=== PATIENT | female | born 2000 | race Caucasian/White ===

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

== ENCOUNTER 2022-03-13 19:23 | Emergency (ER) | payer OTHER, SELFPAY ==
[2022-03-13] VITALS (8 sets, daily range): BP systolic 117–124; BP diastolic 63–91; PULSE 72–115; RESP 10–20; TEMP 36.9–37.1; O2SAT 97–100; BMI 23.0
--- NOTE | 2022-03-13 19:16 | ECG_ITS ---
APPROVED REPORT Exam: Resting ECG HR:113 bpm ECG Measurements Heart Rate 113 AXES IN 131 P 51 QRSd 94 QRS 77 QT 312 T 17 QTc 379 Conclusion SINUS TACHYCARDIA ABNORMAL RHYTHM ECG UNCONFIRMED REPORT Electronically signed by : David Higgins MD 03/14/2022 08:08:58
--- NOTE | 2022-03-13 19:28 | XR_ITS ---
PROCEDURE INFORMATION: Exam: XR Chest Exam date and time: 03/13/2022 7:54 PM Age: 21 years old Clinical indication: Sternal or substernal pain; Additional info: Chest pain TECHNIQUE: Imaging protocol: XR of the chest. Views: 2 views. COMPARISON: CR XR CHEST PORTABLE 09/02/2020 10:31 AM FINDINGS: Lungs: Unremarkable. No consolidation. Pleural spaces: Unremarkable. No pleural effusion. No pneumothorax. Heart/Mediastinum: Unremarkable. No cardiomegaly. Bones/joints: Unremarkable. IMPRESSION: No acute findings.
[2022-03-13 19:37] LABS: Basophils # 0.2 K/mm3 (0-0.2); Basophils % 2.5 % (0.1-2.0); Eosinophils # 0.1 K/mm3 (0.0-0.4); Eosinophils % 0.7 % (0.1-12.0); Hematocrit 46.1 % (37.0-47.0); Hemoglobin 15.5 g/dL (12.2-16.2); Lymphocytes # 1.7 K/mm3 (0.7-4.5); Lymphocytes % 22.8 % (10-50); Mean Corpuscular HGB Conc 33.6 g/dL (31.8-35.4); Mean Corpuscular Hemoglobin 29.4 pg (27.0-31.2); Mean Corpuscular Volume 87.7 fl (81-99); Mean Platelet Volume 8.9 fl (7.4-10.4); Monocytes # 0.5 K/mm3 (0.1-1.0); Monocytes % 6.1 % (1.7-9.3); Platelet Count 269 K/mm3 (142-424); Red Blood Count 5.25 M/mm3 (4.20-5.40); Red Cell Distribution Width 12.9 % (11.5-17.5); White Blood Count 7.3 K/mm3 (4.5-13.0)
[2022-03-13 19:44] LABS: Alanine Aminotransferase 18 U/L (12-78); Albumin Level 4.6 g/dl (3.5-5.0); Alkaline Phosphatase 89 U/L (38-126); Anion Gap 10.6 mEq/L (5-15); Aspartate Amino Transferase 22 U/L (14-36); Bilirubin,Direct 0.2 mg/dl (0.0-0.4); Bilirubin,Indirect 0.2 mg/dL (0.0-0.9); Bilirubin,Total 0.4 mg/dl (0.2-1.3); Bilirubin,Unconjugated 0.2 mg/dL (0.0-1.1); Blood Urea Nitrogen 13 mg/dl (7-17); Calcium 9.3 mg/dl (8.4-10.2); Carbon Dioxide 28 mmol/L (22.0-30.0); Chloride 105 mmol/L (98-107); Creatinine Clearance Estimated 140 mL/min (50-200); Estimated Glomerular Filt Rate 129 ml/min (>60); GFR (African American) 156 ML/MIN (>60); Glucose 73 mg/dl (74-100); Potassium 3.6 mmoL/L (3.5-5.1); Sodium 140 mmol/L (136-145); Total Protein,Serum 7.8 g/dl (6.3-8.2)
--- NOTE | 2022-03-13 19:48 | [facility].EDCP ---
ED Disposition Condition on Discharge: Good - Critical Care Critical Care Time: No <Magdi Nguyen - Last Filed: 03/13/22 19:48> <Faizan Cordova - Last Filed: 03/13/22 22:14> Clinical Impression: Pleurisy, Nonspecific chest pain Disposition: Home, Self-Care Instructions: DI for Atypical Chest Pain Additional Instructions: use meds and recheck if needed Prescriptions: predniSONE [Prednisone 20mg Tab] 20 mg PO BID #10 tab Transmission Status: Pending to [facility] Referrals: Negar Guy APRN [Primary Care Provider] - Attestation: On 03/13/22, the high probability of a clinically significant, sudden or life threatening deterioration of the following system(s) required my full and direct attention, intervention and personal management. The time I documented below is in addition to time spent performing reported procedures but includes the following listed in this critical care notation. Medical Decision Making - Medical Records Medical records reviewed: Yes: I reviewed the patient's medical records. - Tristan Inquiry Pt receiving controlled substance: No - Lab Data Result diagrams: 03/13/22 19:27 - ECG Data Tracing #1 I reviewed this ECG and interpreted as documented below: ECG initial impression date: 03/13/22 ECG initial impression time: 19:16 ECG normal with no acute: arrhythmias, ischemia, conduction abnormalities, chamber hypertrophy Normal Sinus Rhythm: Yes Arrhythmias present: sinus tach - Reevaluation(s) Time: 19:50 - CLEVE Score for Non-Stemi Age of Patient: <30 years old Heart Rate: 110-149 bpm Systolic Blood Pressure: 120-139 mmhg Serum Creatinine: <0.40 mg/dl CHF Killip Class: I-No CHF Other Risk Factors: None Non-Stemi Risk Score: 59 Risk Stratification: 1-108 = Low Risk <Magdi Nguyen - Last Filed: 03/13/22 19:48> - Lab Data Lab results reviewed: Yes: I reviewed the patient's lab results. Result diagrams: 03/13/22 19:27 03/13/22 19:27 - Radiology Data #1 Image(s): Chest Image Reviewed: Yes I have reviewed radiologist's interpretation Preliminary Findings: Normal/NAD <Faizan Cordova - Last Filed: 03/13/22 22:14> Vital Signs: 03/13/22 19:24 03/13/22 19:26 03/13/22 19:45 Temperature 98.7 F Temperature Source Oral Pulse Rate 109 H 105 H Pulse Rate [Right] 115 H Respiratory Rate 19 10 L 16 Blood Pressure 122/91 H 119/71 Blood Pressure [Right Arm] 122/87 Blood Pressure Mean [Right Arm] 98 Blood Pressure Source [Right Arm] Automatic Cuff 02 Sat by Pulse Oximetry 100 98 99 Oxygen Delivery Method Room Air Room Air Room Air 03/13/22 20:30 03/13/22 21:00 03/13/22 21:30 Temperature Temperature Source Pulse Rate 88 80 72 Pulse Rate [Right] Respiratory Rate 20 19 16 Blood Pressure 122/71 122/63 117/73 Blood Pressure [Right Arm] Blood Pressure Mean [Right Arm] Blood Pressure Source [Right Arm] 02 Sat by Pulse Oximetry 97 98 99 Oxygen Delivery Method Room Air 03/13/22 21:57 Temperature 98.4 F Temperature Source Oral Pulse Rate 77 Pulse Rate [Right] Respiratory Rate 16 Blood Pressure 124/83 Blood Pressure [Right Arm] Blood Pressure Mean [Right Arm] Blood Pressure Source [Right Arm] 02 Sat by Pulse Oximetry Oxygen Delivery Method Room Air - Lab Data Lab Results 03/13/22 19:27: WBC 7.3, RBC 5.25, Hgb 15.5, Hct 46.1, MCV 87.7, MCH 29.4, MCHC 33.6, RDW 12.9, Plt Count 269, MPV 8.9, Neut % (Auto) 68.0, Lymph % (Auto) 22.8, Foster % (Auto) 6.1, Eos % (Auto) 0.7, Baso % (Auto) 2.5 H, Neut # (Auto) 5.0, Lymph # (Auto) 1.7, Foster # (Auto) 0.5, Eos # (Auto) 0.1, Baso # (Auto) 0.2 03/13/22 19:27: Sodium 140, Potassium 3.6, Chloride 105, Carbon Dioxide 28, Anion Gap 10.6, BUN 13, Creatinine 0.60, Estimated Creat Clear 140, Estimated GFR 129, Est GFR ( Amer) 156, Glucose 73 L, Calcium 9.3, Total Bilirubin 0.4, Direct Bilirubin 0.2, Conjugated Bilirubin 0.0, Indirect Bilirubin 0.2,
[2022-03-13 19:50] LABS: C-Reactive Protein 32.9 mg/L (0-4)
[2022-03-13 19:52] LABS: HCG Qualitative, Serum Negative (Negative); Magnesium 2.1 mg/dl (1.6-2.3)
[2022-03-13 20:04] LABS: Procalcitonin 0.044 ng/mL (0.0-2.0); Troponin I < 0.01 ng/ml (0.00-0.034)
[2022-03-13 20:05] LABS: Erythrocyte Sedimentation Rate 16 mm/hr (0-20)
== END 2022-03-13 22:22 | disposition home or self-care (01) ==
PROVIDERS: Emergency Provider Emergency Medicine; PCP Nurse Practitioner Family
DX: R09.1 Pleurisy (principal); R07.89 Other chest pain
CPT/HCPCS: 71046; 80048; 80076; 83735; 84145; 84484; 84703; 85025; 85651; 86140; 93005; 96360; 96365; 96375

== ENCOUNTER 2023-11-25 19:26 | Emergency (ER) | payer OTHER, SELFPAY ==
[2023-11-25 19:35] VITALS: BP 121/80; PULSE 91; RESP 18; TEMP 37.3; O2SAT 99; BMI 28.3
--- NOTE | 2023-11-25 19:53 | ED_ITS ---
Discharge Plan Disposition Patient Disposition: Home, Self-Care Condition: Good Prescriptions Prescriptions: New oseltamivir [Tamiflu] 75 mg capsule 75 mg PO Q12H 5 Days Qty: 10 0RF No Action vitamin B complex [Vitamins B Complex] Tablet 1 tab PO DAILY buspirone 10 mg tablet 10 mg PO BID sertraline 50 mg tablet 75 mg PO DAILY 30 Days Qty: 45 2RF propranolol 10 mg tablet 10 mg PO TID Qty: 90 2RF cyclobenzaprine 10 mg tablet 10 mg PO HS PRN (Reason: muscle spasm) Qty: 30 0RF Referrals Follow up/Referrals: Negar Guy APRN [Primary Care Provider] - See instructions Activity Restrictions/Add. Instructions Additional Instructions/Restrictions: * Start Tamiflu today if you are going to take it. Discussed risk and possible benefits. * Lots of rest * Increase Fluids water, Gatorade, powerade, pedialyte,if /toddler/child * Alternate Tylenol and / or ibuprofen as discussed for fever, aches, chills Follow up IMMEDIATELY with your family doctor for new or worsening Symptoms OR no noticeable improvement over the next 48-72 hours, 911 for difficulty or breathing * You or your child area contagious until no fever, aches, chills for 24 hours with medication for symptoms * Help Prevent the spread of influenza: * ?Wash your hands often. Use soap and water. Wash your hands after you use the bathroom, change a child's diapers, or sneeze. Wash your hands before you prepare or eat food. Use gel hand cleanser that has 60% alcohol, when soap and water are not available. Do not touch your eyes, nose, or mouth unless you have washed your hands first. * Cover your mouth when you sneeze or cough. Cough into a tissue or the bend of your arm. If you use a tissue, throw it away immediately and wash your hands. * Clean shared items with a germ-killing telephone cleaner. Clean table surfaces, doorknobs, and light switches. Do not share towels, silverware, and dishes with people who are sick. Wash bed sheets, towels, silverware, and dishes with soap and water. * Wear a mask over your mouth and nose if you are sick. The face mask may help protect others from becoming infected with the flu. Wear the mask when in common areas of your home or if you seek care with a healthcare provider. * Stay away from others if you are sick. Stay at home until 24 hours after your fever and symptoms are gone. Clinical Impressions Clinical Impression: Influenza Stand Alone Forms Stand Alone Forms: Work/School Release Instructions Patient Instructions: DI for Influenza -- Adult Discharge ED Provider: Emilee Ivey [facility] [place], [place] HPI General Stated complaint: sneezy, cough, body aches , sore throat Mode of Arrival: Ambulatory Source of Information: Patient Limitations: No Limitations Time Seen by Provider: 11/25/23 19:55 Description of Symptoms (Recalled from Triage Doc. by RN): PATIENT C/O SORE THROAT, DRAINAGE, SINUS PRESSURE, CHILLS AND BODY ACHES X 2 DAYS HEENT Symptoms (Recalled from RN notes): Yes Resp Symptoms (Recalled from RN notes): No Skin Symptoms (Recalled from RN notes): No MS Symptoms (Recalled from RN notes): No Functional Status (Recalled from RN notes): WNL History of Present Illness Provider Complaint: Patient states that she started feeling bad a couple days ago with nasal congestion, and pain in her ears on and off States that this morning she woke up and was felt bad States that on and off all day today she h as continued to feel worse and started feeling achy all over and having chills so after work she came in to get checked Related Data Home Medications Medication Instructions Recorded Confirmed buspirone 10 mg tablet 10 mg PO BID Anxiety 08/20/23 11/25/23 vitamin B complex (Vitamins B 1 tab PO DAILY 09/10/23 11/25/23 Complex tablet) Previous Rx's Medication Instructions Recorded propranolol 10 mg tablet 10 mg PO TID #90 tabs 11/12/23 sertraline 50 mg tablet 75 mg PO DAILY 30 days #45 tabs 11/12/23 cyclobenzaprine 10 mg tablet 10 mg PO HS PRN muscle spasm #30 11/15/23 tabs oseltamivir 75 mg capsule (Tamiflu) 75 mg PO Q12H 5 days #10 caps 11/25/23 Allergies Allergy/AdvReac Type Severity Reaction Status Date / Time No Known Allergies Allergy Verified 11/12/23 10:48 Worker's Comp Is this a Worker's Comp case?: No [facility] Disclaimer: The information contained in this section may have been updated after the patient was seen, as this information can be updated by other users. Medical History (Updated 11/25/23 @ 19:59 by Emilee Ivey APRN) Anxiety Asthma Depression Urinary tract infection Family History Other No significant family history Social History Smoking Status: Never smoker alcohol intake: never substance use type: denies use current occupational status: student Travel in the last 8 weeks: None household members: family housing: house caffeine: No ROS Obtained: Yes All systems reviewed & no additional complaints except as documented and Yes Systems reviewed as appropriate & no additional complaints except as documented Constitutional Constitutional: Reports system reviewed and no additional complaints, except as documented, Reports as per HPI, Reports body ache and Reports chills ENT Ears, Nose, Mouth, and Throat: Reports system reviewed and no additional complaints, except as documented, Reports as per HPI, Reports otalgia, Reports nasal congestion and Reports nasal discharge Cardiovascular Cardiovascular: Reports system reviewed and no additional complaints, except as documented and Reports as per HPI Respiratory Respiratory: Reports system reviewed and no additional complaints, except as documented and Reports as per HPI Gastrointestinal Gastrointestingal: Reports system reviewed and no additional complaints, except as documented and as per HPI Physical Exam General General appearance: alert and in no apparent distress ENT ENT exam: Present mucous membranes moist Expanded ENT Exam TM/Canal exam: Bilateral TM: bulging (clear fluid) Nose exam: Absent sinus tenderness Throat exam: Present normal inspection Respiratory Respiratory exam: Present normal lung sounds bilaterally; Absent respiratory distress or wheezes Cardiovascular Cardiovascular exam: Present regular rate, normal rhythm and normal heart sounds Neurological Exam Neurological exam: Present alert, oriented X3 and normal gait Medical Decision Making Tristan Inquiry Pt receiving controlled substance: No Tristan was queried for this patient: No Vital Signs: 11/25/23 19:35 Temperature 99.2 F Temperature Source Oral Pulse Rate [Left Brachial] 91 H Respiratory Rate 18 Blood Pressure [Left Arm] 121/80 Blood Pressure Mean [Left Arm] 93 Blood Pressure Source [Left Arm] Automatic Cuff Blood Pressure Position [Left Arm] Sitting 02 Sat by Pulse Oximetry 99 Oxygen Delivery Method Room Air Lab Data Lab results reviewed: Yes I reviewed the patient's lab results.
[2023-11-25 19:54] LABS: UTC Influenza A Antigen Positive (Negative); UTC Influenza B Antigen Negative (Negative); UTC Strep Screen (Rapid) Negative (Negative)
[2023-11-25 19:56] VITALS: BP 121/80; PULSE 91; RESP 18; TEMP 37.3; O2SAT 99
== END 2023-11-25 20:03 | disposition home or self-care (01) ==
PROVIDERS: Emergency Provider Nurse Practitioner; PCP Nurse Practitioner Family
DX: J10.1 Influenza due to other identified influenza virus with other respiratory manifestations (principal); R05.9 Cough, unspecified; R09.81 Nasal congestion; R09.82 Postnasal drip; R07.0 Pain in throat; M79.18 Myalgia, other site; H92.03 Otalgia, bilateral
CPT/HCPCS: 87804; 87880; 99204; 99212; G0463

== ENCOUNTER 2024-01-04 15:33 | Outpatient (CLI) | payer BC, SELFPAY ==
--- NOTE | 2024-01-04 15:40 | XR_ITS ---
FINAL REPORT CLINICAL HISTORY: dorsalgia of lower back FINDINGS: LUMBAR SPINE Three views demonstrate no acute fracture. The disc spaces are well preserved. There is no malalignment. IMPRESSION: No acute process. Reviewed, Interpreted and Dictated by Brendan Good III, MD Transcribed by Lesly Cowan Authenticated and [facility]
[2024-01-04 18:16] LABS: Thyroid Stimulating Hormone 0.85 uIU/mL (0.465-4.68)
[2024-01-04 18:23] LABS: Ferritin 41.8 ng/ml (6.24-137)
[2024-01-04 18:35] LABS: Vitamin B12 565 pg/mL (239-931)
[2024-01-04 18:56] LABS: C-Reactive Protein 2.3 mg/L (0-4)
== END 2024-01-04 23:59 ==
LOC: RAD 15:34
PROVIDERS: PCP Nurse Practitioner Family; Visit Provider Nurse Practitioner Family
DX: M54.50 Low back pain, unspecified (principal); R63.5 Abnormal weight gain
CPT/HCPCS: 72100; 82607; 82728; 84443; 86140

== ENCOUNTER 2024-03-06 16:25 | Outpatient (CLI) | payer BC, SELFPAY ==
--- NOTE | 2024-03-06 16:26 | MR_ITS ---
FINAL REPORT CLINICAL HISTORY: Dorsalgia of lumbar spine FINDINGS: Multiplanar MR imaging of the lumbar spine was performed without contrast. On the sagittal T2-weighted images, disc degeneration is seen L5-S1. The vertebral alignment is normal. There is no evidence of fracture. No bony mass is identified. The conus is seen at approximately the L1 level and has an unremarkable appearance. T11-12: Unremarkable. T12-L1: Unremarkable. L1-2: There is no significant canal stenosis or neural foraminal narrowing. L2-3: There is no significant canal stenosis or neural foraminal narrowing. L3-4: There is an annular disc bulge without significant canal stenosis or neural foraminal narrowing. L4-5: There is an annular disc bulge without significant canal stenosis or neural foraminal narrowing. L5-S1: Annular disc bulge with posterior midline annular tear and small central disc protrusion. IMPRESSION: Posterior midline annular tear at L5-S1 with small central disc protrusion. Reviewed, Interpreted and Dictated by Brendan Good III, MD Transcribed by Gracia Glover Authenticated and [facility]
== END 2024-03-06 23:59 ==
LOC: RAD 16:26
PROVIDERS: PCP Nurse Practitioner Family; Visit Provider Nurse Practitioner Family
DX: M54.50 Low back pain, unspecified (principal)
CPT/HCPCS: 72148; 76376

== ENCOUNTER 2024-04-05 08:56 | Outpatient (POV) | payer BC, SELFPAY ==
--- NOTE | 2024-04-05 09:05 | A.OFFVIS_ITS ---
HPI Data of Consult Patient: new to practice Consult date: 04/05/24 Requesting Physician: Leena Riddle APRN Primary Care Provider: Negar Guy APRN Consult Narrative Reason for consult: Low back pain, left-sided History of present illness: Ms. Elizalde is a 23 year old female who presents today as a new patient. She is a referral from Negar Guy's office. Patient rates her pain a 6 out of 10. Patient states her pain is all in her low back along the left side. She states this is unrelated to any specific trauma or injury. Patient states this is been going on for almost a year however the last couple of months have been worse. 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 Patient does describe her pain as a aching, throbbing sensation that is worse with increased activity or certain positions. Patient does states she has a lot of pain with bending or lifting. Patient states that she feels the pain will radiate a little up higher into her back. She does state the pain interferes with her ability perform activities of daily living. Patient has tried [id number] Tylenol and ibuprofen along with heat and ice and topicals. She states that she was taking ibuprofen for some time and then was given a prescription for ibuprofen 800 mg. She states this does only so-so and on bad days she does not even notice that it is made any improvements. Patient has already been prescribed a compounded cream from our office and states when she is first tried it she has not noticed a huge improvement. Patient denies any surgery or injection history in the past. Patient has tried at home exercising and stretching for longer than 6 weeks with minimal relief. Patient was also prescribed Flexeril however states that she has not noticed any change with this medication. her Tristan has been reviewed and is appropriate. CC: Leena Riddle APRN [facility] Disclaimer: The information contained in this section may have been updated after the patient was seen, as this information can be updated by other users. Medical History (Updated 04/05/24 @ 09:30 by Leena Riddle APRN) Depression Anxiety Urinary tract infection Asthma Surgical History (Updated 03/27/24 @ 13:07 by Nicole Ahumada) H/O colonoscopy Family History (Updated 03/27/24 @ 13:08 by Nicole Ahumada) Grandfather Hypertension Social History Smoking Status: Never smoker alcohol intake: never substance use type: denies use current occupational status: student Travel in the last 8 weeks: None household members: family housing: house caffeine: No Review of Systems Review of Systems Review of systems:: pertinent systems reviewed and negative unless documented below Review of systems (narrative): Review of Systems: General: No recent weight changes, no fever, no sleep disturbances Respiratory: No cough, no shortness of air, no recurring pulmonary infections Cardiovascular/peripheral vascular: No chest pain, no palpitations, no edema, no shortness of breath Gastrointestinal: No new onset incontinence, normal bowel movements reported Genitourinary: No new onset incontinence Musculoskeletal: Low back pain Psychiatric: [Normal mood/affect] Neurological: [Denies weakness in extremities], [denies balance issues] Meds Home Medications and Allergies Home Medications Medication Instructions Recorded Confirmed Type buspirone 10 mg tablet 10 mg PO BID Anxiety 08/20/23 03/27/24 History vitamin B complex (Vitamins B 1 tab PO DAILY 09/10/23 03/27/24 History Complex tablet) propranolol 10 mg tablet 10 mg PO TID #90 tabs 11/12/23 03/27/24 Rx Saccharomyces boulardii 250 mg 250 mg PO DAILY 01/04/24 03/27/24 History capsule (Daily Probiotic (S. boulardii)) ascorbate calcium (vitamin C) 500 500 mg PO DAILY 01/04/24 03/27/24 History mg tablet sertraline 50 mg tablet 75 mg (1.5 x 50 mg) PO DAILY 30 02/07/24 03/27/24 Rx days #45 tabs cyclobenzaprine 10 mg tablet 10 mg PO HS PRN muscle spasm 30 03/13/24 03/27/24 Rx days #30 tabs dicyclomine 10 mg capsule 10 mg PO TID 03/13/24 03/27/24 History ibuprofen 800 mg tablet 800 mg PO Q8H PRN pain 30 days #90 03/13/24 03/27/24 Rx tabs cream base no.39 (bulk) (Versapro 1 applic topical PRN 03/27/24 03/27/24 History Cream Base topical) New Prescriptions to Start Prescriptions: Allergies Allergy/AdvReac Type Severity Reaction Status Date / Time No Known Allergies Allergy Verified 03/27/24 13:01 Objective Narrative: Physical Exam: General: Alert and oriented x3, no acute distress, pleasant and cooperative Lungs: Respirations even and unlabored, symmetrical chest expansion Eyes: PERRL Musculoskeletal: Flexion and extension of lumbar [spine] somewhat guarded secondary to pain, [antalgic gait noted] positive Kemps test left-sided Neurological: Speech clear, no gross sensory deficit Additional findings Additional findings: FINDINGS: Multiplanar MR imaging of the lumbar spine was performed without contrast. On the sagittal T2-weighted images, disc degeneration is seen L5-S1. The vertebral alignment is normal. There is no evidence of fracture. No bony mass is identified. The conus is seen at approximately the L1 level and has an unremarkable appearance. T11-12: Unremarkable. T12-L1: Unremarkable. L1-2: There is no significant canal stenosis or neural foraminal narrowing. L2-3: There is no significant canal stenosis or neural foraminal narrowing. L3-4: There is an annular disc bulge without significant canal stenosis or neural foraminal narrowing. L4-5: There is an annular disc bulge without significant canal stenosis or neural foraminal narrowing. L5-S1: Annular disc bulge with posterior midline annular tear and small central disc protrusion. IMPRESSION: Posterior midline annular tear at L5-S1 with small central disc protrusion. Reviewed, Interpreted and Dictated by Brendan Good III, MD Transcribed by Gracia Glover Authenticated and [facility] Assessment and Plan *Assessment and plan (1) Degenerative disc disease, lumbar: Status: Acute Category: Medical Code(s): M51.36 - Other intervertebral disc degeneration, lumbar region (2) Protrusion of lumbar intervertebral disc: Status: Acute Category: Medical Code(s): M51.26 - Other intervertebral disc displacement, lumbar region (3) Lumbar facet arthropathy: Status: Acute Category: Medical Code(s): M47.816 - Spondylosis without myelopathy or radiculopathy, lumbar region Plan Patient is experiencing worsening pain in her low back with limited range of motion of her lumbar spine. I have discussed with patient that she may benefit from future injection therapy such as a lumbar medial branch block. Patient will be ordered physical therapy for evaluation and treatment of her low back pain. I have also counseled the patient that I will send in a prescription of diclofenac 75 mg twice daily and baclofen 5 mg twice daily and provide a 2-week supply of this medication. Patient will follow-up with our office in 1 month for reevaluation of symptoms and plan of care. Patient has been instructed to contact the clinic with any concerns before the next appointment. Dr. Wu has reviewed this note and agrees with this plan of care. This note was dictated using voice recognition software and make contain errors or omissions.
[2024-04-05 09:17] VITALS: BP 134/78; PULSE 88; RESP 18; O2SAT 98; BMI 27.4
== END 2024-04-05 23:59 | disposition home or self-care (01) ==
PROVIDERS: PCP Nurse Practitioner Family; Visit Provider Nurse Practitioner Family
DX: M51.36 Other intervertebral disc degeneration, lumbar region (principal); M51.26 Other intervertebral disc displacement, lumbar region; M47.816 Spondylosis without myelopathy or radiculopathy, lumbar region
CPT/HCPCS: 99202; G0463

== ENCOUNTER 2024-09-04 15:23 | Emergency (ER) | payer BC, SELFPAY ==
[2024-09-04 15:39] VITALS: BP 119/72; PULSE 76; RESP 16; TEMP 36.9; O2SAT 98; BMI 29.2
--- NOTE | 2024-09-04 15:49 | EXP.UTC ---
Discharge Plan Disposition Patient Disposition: Home, Self-Care Condition: Good Prescriptions Prescriptions: New ondansetron 4 mg tablet,disintegrating 4 mg PO Q8H PRN (Reason: nausea and vomiting) Qty: 12 0RF No Action vitamin B complex [Vitamins B Complex] Tablet 1 tab PO DAILY Saccharomyces boulardii [Daily Probiotic (S. boulardii)] 250 mg capsule 250 mg PO DAILY ascorbate calcium (vitamin C) 500 mg tablet 500 mg PO DAILY ibuprofen 800 mg tablet 800 mg PO Q8H PRN (Reason: pain) 30 Days Qty: 90 0RF cyclobenzaprine 10 mg tablet 10 mg PO HS PRN (Reason: muscle spasm) 30 Days Qty: 30 0RF Versapro Cream Base Cream 1 applic topical DIRECTED PRN (Reason: Skin Condition) propranolol 10 mg tablet See Rx Instructions .ROUTE .COMPLEX Qty: 90 2RF Dose Instruction: TAKE ONE TABLET BY MOUTH THREE TIMES DAILY Rx Instructions: TAKE ONE TABLET BY MOUTH THREE TIMES DAILY buspirone 10 mg tablet 10 mg PO BID Qty: 60 2RF dicyclomine 10 mg capsule 10 mg PO TID Qty: 90 3RF desvenlafaxine succinate 50 mg tablet extended release 24 hr See Rx Instructions .ROUTE .COMPLEX Qty: 30 3RF Dose Instruction: TAKE ONE TABLET BY MOUTH EVERY DAY Rx Instructions: TAKE ONE TABLET BY MOUTH EVERY DAY diclofenac sodium 75 mg tablet,delayed release (DR/EC) 75 mg PO BID Qty: 28 0RF baclofen 5 mg tablet 5 mg PO BID PRN (Reason: muscle spasm) Qty: 28 0RF Referrals Follow up/Referrals: Negar Guy APRN [Primary Care Provider] - See instructions Activity Restrictions/Add. Instructions Additional Instructions/Restrictions: Drink extra fluids with and between meals. If you have difficulty drinking, try very small amounts of water or suck on ice chips. ? Avoid fruit juices, as these do not replace minerals and can actually increase diarrhea. ? Children and adults can use sports drinks to replenish electrolytes. Younger children and infants should use products formulated for children, like oral rehydration solutions. ? Eat food in small amounts and let your stomach recover. ? Get lots of rest. You may feel tired or weak. ? No greasy or fried foods for the next 24-48 hours BRAT diet Bananas Rice Apples and Hissop ? Make sure to drink plenty of liquids ? Return if needed ? Straight to ER if any life threatening symptoms ? Zofran as prescribed ? You was given an outpatient order for diarrhea panel, please collect specimen and bring back to outpatient lab then call back to the [facility] or follow up with family doctor for results ? Follow up with family doctor in the next 48-72 hours if no improvement or any worsening of symptoms Clinical Impressions Clinical Impression: Nausea & vomiting Instructions Patient Instructions: Nausea and Vomiting-Adult, Ondansetron Print Language Print Language: [place] Discharge ED Provider: Emilee Ivey Anai [facility] HPI General Stated complaint: N/V,CHRISTOPHER Mode of Arrival: Ambulatory Source of Information: Patient Limitations: No Limitations Time Seen by Provider: 09/04/24 15:49 Description of Symptoms (Recalled from Triage Doc. by RN): Patient complaint of nausea, vomiting and headache. 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 boulardii)) ascorbate calcium (vitamin C) 500 500 mg PO DAILY 01/04/24 08/17/24 mg tablet cream base no.39 (bulk) (Versapro 1 applic topical DIRECTED PRN 03/27/24 08/17/24 Cream Base topical) Skin Condition Previous Rx's ?Medication ?Instructions ?Recorded cyclobenzaprine 10 mg tablet 10 mg PO HS PRN muscle spasm 30 03/13/24 days #30 tabs ibuprofen 800 mg tablet 800 mg PO Q8H PRN pain 30 days #90 03/13/24 tabs baclofen 5 mg tablet 5 mg PO BID PRN muscle spasm #28 04/05/24 tabs diclofenac sodium 75 mg 75 mg PO BID #28 tabs 04/05/24 tablet,delayed release propranolol 10 mg tablet See Rx Instructions .Route 05/01/24 .COMPLEX #90 tabs buspirone 10 mg tablet 10 mg PO BID Anxiety #60 tabs 07/25/24 dicyclomine 10 mg capsule 10 mg PO TID #90 caps 07/25/24 desvenlafaxine succinate 50 mg See Rx Instructions .Route 08/30/24 tablet,extended release 24 hr .COMPLEX #30 tabs ondansetron 4 mg disintegrating 4 mg PO Q8H PRN nausea and 09/04/24 tablet vomiting #12 tabs Allergies Allergy/AdvReac Type Severity Reaction Status Date / Time No Known Allergies Allergy Verified 08/17/24 15:09 Worker's Comp Is this a Worker's Comp case?: No [facility] Disclaimer: The information contained in this section may have been updated after the patient was seen, as this information can be updated by other users. Medical History (Updated 09/04/24 @ 15:59 by Emilee Ivey APRN) Panic disorder Depression Anxiety Urinary tract infection Asthma Surgical History H/O colonoscopy Family History Grandfather Hypertension Social History (Updated 04/05/24 @ 09:21 by Rima Lucero RN) Smoking Status: Never smoker alcohol intake: never substance use type: denies use current occupational status: student Travel in the last 8 weeks: None household members: family housing: house caffeine: No ROS Obtained: Yes All systems reviewed & no additional complaints except as documented and Yes Systems reviewed as appropriate & no additional complaints except as documented Constitutional Constitutional: Reports system reviewed and no additional complaints, except as documented, Reports as per HPI and Reports headache(s) (mild) ENT Ears, Nose, Mouth, and Throat: Reports system reviewed and no additional complaints, except as documented, Reports as per HPI and Reports headache(s) (mild) Respiratory Respiratory: Reports system reviewed and no additional complaints, except as documented and Reports as per HPI Gastrointestinal Gastrointestingal: Reports system reviewed and no additional complaints, except as documented, as per HPI, diarrhea, nausea and vomiting; Denies abdominal pain Genitourinary Female Genitourinary: Reports system reviewed and no additional complaints, except as documented and Reports as per HPI Comments: last period 2 weeks ago Neurologic Neurologic: Reports headache(s) (mild) Physical Exam General General appearance: alert and in no apparent distress ENT ENT exam: Present mucous membranes moist Respiratory Respiratory exam: Present normal lung sounds bilaterally; Absent respiratory distress or wheezes Cardiovascular Cardiovascular exam: Present regular rate, normal rhythm and normal heart sounds Abdominal Exam Abdominal exam: Present soft and normal bowel sounds; Absent distention, tenderness, guarding or rebound Neurological Exam Neurological exam: Present alert, oriented X3 and normal gait Medical Decision Making Medical Records Screening: Per USPSTF and CDC recommendations, given the prevalence of disease in our region, it is our hospital?s policy to screen for HIV and viral Hepatitis for all patients aged 18 and over and those with ongoing risk factors. Tristan Inquiry Pt receiving controlled substance: No Tristan was queried for this patient: No Vital Signs: 09/04/24 15:39 Temperature 98.4 F Temperature Source Oral Pulse Rate [Radial] 76 Respiratory Rate 16 Blood Pressure [Right Arm] 119/72 Blood Pressure Mean [Right Arm] 87 Blood Pressure Source [Right Arm] Automatic Cuff Blood Pressure Position [Right Arm] Sitting 02 Sat by Pulse Oximetry 98 Oxygen Delivery Method Room Air
[2024-09-04 16:05] VITALS: BP 119/72; PULSE 76; RESP 16; TEMP 36.9; O2SAT 98
== END 2024-09-04 16:05 | disposition home or self-care (01) ==
PROVIDERS: Emergency Provider Nurse Practitioner; PCP Nurse Practitioner Family
DX: R11.2 Nausea with vomiting, unspecified (principal)
CPT/HCPCS: 99213; G0381

== ENCOUNTER 2024-09-27 11:00 | Outpatient (RCR) | payer BC, SELFPAY ==
--- NOTE | 2024-05-09 13:48 | HMH.PTOPEV ---
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 Pt reports recurrent episodes/exacerbations of LBP since initial injury, and reports 'currently having one now.' Pt reports midline and left sided LBP w/referred pain into left glut/lateral mid- thigh area. Recent MRI of lumbar spine has revealed L5- S1 annular tear w/posterior midline central disc protrusion. New diagnosis of cancer in past 12 No months? Chief Complaint Pain,Spasms,Stiff Symptom Type Ache,Throb,Sharp Symptoms Relieved By Prescription Meds Symptoms Aggravated By Bending/Stooping,Twisting, Lifting Prior Functional Limitations Lifting,Housework,Bending/ Stooping Current Functional Limitations Lifting,Housework,Bending/ Stooping Symptom Description Constant and Continuous Level of pain today (0-10) 7 Pain scale - at its best (0-10) 7 Pain scale - at its worst (0-10) 9 Lumbopelvic Eval Posture Thoracic Spine Posture Standing Position Neutral Lumbar Spine Posture Standing Position Neutral Assistive device Assistive Devices None / NA Gait Observation General Gait Pattern Observation No Deviations/Normal Palapation tenderness right lumbar spinal tenderness Yes: 1-2/4 paraspinal tenderness Yes: 1-2/4 buttock tenderness No Lumbar/Sacral Palpation Findings Tenderness left lumbar spinal tenderness Yes: 3/4 paraspinal tenderness Yes: 3/4 buttock tenderness Yes: 3/4 Lumbar/Sacral Palpation Findings Tenderness,Trigger Point, Muscle Guarding Accessory Movement L-spine Vertebrae Accessory Movements Central P/A [place] that Elicit Symptoms L3 left L4 left L5 left Range of Motion Lumbar Spine Active Flexion Range of 0-20 Motion (degrees) Lumbar Spine Active Extension Range of 0-25 Motion (degrees) Left Lumbar Spine Lateral Flexion Active 0-25 Range of Motion (degrees) Right Lumbar Spine Lateral Flexion 0-10 Active Range of Motion (degrees) Lumbar Spine ROM Limitations Pain Manual Muscle Test Right Knee Extension Strength Grade 5 Normal Knee Flexion Strength Grade 4 Good Hip Flexion Strength Grade 4 Good Extensor Hallucis Longus Strength Grade 5 Normal Ankle Dorsiflexion Strength Grade 5 Normal Gastronemius/Soleus Strength Grade 5 Normal Left Knee Extension Strength Grade 5 Normal Knee Flexion Strength Grade 4- Good- Hip Flexion Strength Grade 4- Good- Extensor Hallucis Longus Strength Grade 5 Normal Ankle Dorsiflexion Strength Grade 5 Normal Gastronemius/Soleus Strength Grade 5 Normal Special Tests Hip Piriformis Test Negative Left,Negative Right Sciatic Nerve Tension Test Negative Left,Negative Right Reverse Sciatic Nerve Tension Test Negative Left,Negative Right Lumbar Long [place] Distraction Test/Manual Positive Traction Oswestry Index Section 1 Pain Intensity The pain comes and goes and is moderate Section 2 Personal Care (Washing,Dresing) change my way of washing or dressing in order to avoid pain Section 3 Lifting lifting heavy weights off the floor, but I can manage if they are Section 4 Walking I have some pain when walking but it does not increase with distance Section 5 Sitting I can sit in my favorite chair for as long as I like Section 6 Standing I have some pain on standing, but it does not increase with time Section 7 Sleeping I get pain in bed, but it does not prevent me from sleeping well Section 8 Social Life My social life is normal and gives me no extra pain Section 9 Traveling I get some pain when traveling , but none of my usual forms of travel m Section 10 Changing Degreee of Pain My pain seems to be getting better, but improvement is slow Score and Risk Level Oswestry Sc 12 Oswestry Risk Level Mild Disability Outpatient Therapy Assessment Impairments Problems/Impairmments Palpation Tenderness,Impaired Range of Motion,Impaired Strength,Impaired Lifting, Impaired Household Care, Impaired Bending,Impaired Work Activities,Subjective C/O Pain,Impaired Self Care/Self Management Prognosis Rehab Potential Good Clinical Impression Consistent with Diagnosis Yes Short Term Goals Number of Weeks 4 Decreased Palpation Tenderness Yes: 1-2/4 lumbar mm Increase Range of Motion Yes: 50-75% of WFL AROM LUMBAR SPINE Increase Strength Yes: 4/5 B/L LE'S Restore Ability to Lift Objects to Waist Yes: 20# Level Decrease Subjective C/O Pain Yes: 3/10 W/ABOVE ACTIVITIES Patient to be Ind w/ 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 Number of Weeks 6-8 Decreased Palpation Tenderness Yes: 0-1/4 LUMBAR MM Increase Range of Motion Yes: WFL LUMBAR AROM Increase Strength Yes: 4+-5/5 B/L LE'S Restore Ability to Lift Objects to Waist Yes: 40-50# 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 Improve Ability For Household Care Yes: WFL Improve Tolerance to Work Activities Yes: WFL FULL-DUTY Improve Oswestry Score Yes: 6-8 Decrease Subjective C/O Pain Yes: 0-2/10 W/ABOVE ACTIVITIES Patient to be Ind w/ Advanced HEP Yes Outpatient Therapy Plan of Care Treatment Plan May Include Therapeutic Exercise Including Home Yes Exercise Program Manual Therapy Techniques Yes Neuromuscular Re-education Yes Therapeutic Activities to Return to Yes Previous Functional/Work Level Gait Training Yes ADL/Self Care Education Yes Mechanical Traction Yes Dry Needling Yes Thermal Modalities Yes Electrical Stimulation Yes Ultrasound/Phonophoresis Yes Iontophoresis Yes Eval/Re-Eval Yes Frequency Times per week 2-3 Duration Number of Weeks 6-8 Addendums This patient is a candidate for social No or vocational rehab? Patient/Guardian verbally acknowledges Yes understanding of treatment program and consents to further treatment? Patient/Guardian verbally acknowledges Yes understanding of diagnosis, prognosis and goals for treatment? Eval Complexity PT Charges 90016 - Moderate Complexity Shoulder/Elbow Eval Shoulder Objective Measurements Elbow Objective Measurements PHYSICIAN CERTIFICATION: I certify the specified therapy services for Luiza Elizalde are required, authorized, and reviewed every 30 days.
--- NOTE | 2024-06-15 10:24 | HMH.RHREAS ---
Rehab Reassessment Rehab OP Re-assessment Start: 05/09/24 13:36 Freq: Status: Active Protocol: Document 06/15/24 10:16 ARAMIS (Rec: 06/15/24 10:24 ARAMIS [id number]) E-signed By Manav Boggs, PT Rehab Re-assessment Subjective Subjective Pt reports 5/10 left sided LBP this am on VAS, however, pt has not been seen since I eval ~37 days ago. Pt reports compliance w/initial components of extension protocol. Objective Objective Notes AROM: LUMBAR SPINE FLX 0-30, EXT 0-20, LEFT SB 0-20, RIGHT SB 0-30 MMT: LEFT HIP FLX 4/5, LEFT HIP ABD 4/5, LEFT HIP ADD, EXT ,KNEE EXT,FLX = ALL WFL TTP: LEFT LUMBAR PARA. 2/4, LEFT GLUT MM 12/02 Assessment Progress Assessment Slower Than Expected Assessment Notes Despite absence from skilled P .T. pt made progress w/ strength, ROM and TTP Patient goals met STG'S 03/04 Goals Not Met STG'S 01/04, LTG'S 08/07 Plan Plan Pt to continue w/skilled P.T. to make further improvements in ROM, strength, and TTP to allow for optimal function Frequency of Therapy 1-2x/wk Duration of therapy 4-6wks Time and Billing Re-Eval Time 12 PHYSICIAN CERTIFICATION: I certify the specified therapy services for Luiza Elizalde are required, authorized, and reviewed every 30 days.
--- NOTE | 2024-07-10 11:26 | HMH.RHREAS ---
Rehab Reassessment Rehab OP Re-assessment Start: 05/09/24 13:36 Freq: Status: Active Protocol: Document 07/10/24 11:21 ARAMIS (Rec: 07/10/24 11:26 ARAMIS [id number]) E-signed By Manav Boggs, PT Rehab Re-assessment Subjective Subjective Pt reports exacerbation of left sided LBP since 'tweaking it' about 1 week ago. Pt reports this left sided LBP is localized to upper lumbar region @ 6/10 on VAS this am. Objective Objective Notes AROM: LUMBAR SPINE FLX 0-10, EXT 0-25, LEFT SB 0-10, RIGHT SB 0-20 MMT: LEFT HIP FLX 4-4+/5, LEFT HIP ABD 4/5, LEFT HIP ADD, EXT,KNEE EXT,FLX = ALL WFL TTP: LEFT LUMBAR PARA. 2-3/4, LEFT GLUT MM 0/4 Assessment Progress Assessment Slower Than Expected Assessment Notes slight regressions noted w/ROM and TTP, however, exhibits improved strength. Patient goals met STG'S 03/04 Goals Not Met STG'S 01/04, LTG'S 08/07 Plan Plan Pt to continue w/skilled P.T. to make further improvements in ROM, strength, and TTP to allow for optimal function Frequency of Therapy 1-2x/wk Duration of therapy 4-6wks Time and Billing Re-Eval Time 12 Re-Eval Billing Units 1 PHYSICIAN CERTIFICATION: I certify the specified therapy services for Luiza Elizalde are required, authorized, and reviewed every 30 days.
--- NOTE | 2024-08-08 08:40 | HMH.RHREAS ---
Rehab Reassessment Rehab OP Re-assessment Start: 05/09/24 13:36 Freq: Status: Active Protocol: Document 08/08/24 08:34 ARAMIS (Rec: 08/08/24 08:40 ARAMIS [id number]) E-signed By Manav Boggs, PT Rehab Re-assessment Subjective Subjective Pt reports 5/10 left sided LBP on VAS this am, and feels 50% better overall since I eval. Pt reports complete resolution of LLE radicular s/s, and Low back s/s area centralizing Objective Objective Notes AROM: LUMBAR SPINE FLX 0-55, EXT 0-25, LEFT SB 0-20, RIGHT SB 0-25 MMT: LEFT HIP FLX 4+/5, LEFT HIP ABD 4/5, LEFT HIP ADD, EXT ,KNEE EXT,FLX = ALL WFL TTP: LEFT LUMBAR PARA. 1-2/4, LEFT GLUT MM 0/4 Assessment Progress Assessment Progressing as Expected Assessment Notes improved AROM, TTP, and strength Patient goals met STG'S 04/03 LTG'S 03/07 Goals Not Met STG'S 12/04, LTG'S 04/06 Plan Plan Pt to continue w/skilled P.T. to make further improvements in ROM, strength, and TTP to allow for optimal function Frequency of Therapy 1-2x/wk Duration of therapy 2-4wks Time and Billing Re-Eval Time 12 Re-Eval Billing Units 1 PHYSICIAN CERTIFICATION: I certify the specified therapy services for Luiza Elizalde are required, authorized, and reviewed every 30 days.
--- NOTE | 2024-09-12 11:28 | HMH.RHREAS ---
Rehab Reassessment Rehab OP Re-assessment Start: 05/09/24 13:36 Freq: Status: Active Protocol: Document 09/12/24 11:23 ARAMIS (Rec: 09/12/24 11:28 ARAMIS [id number]) E-signed By Manav Boggs, PT Rehab Re-assessment Subjective Subjective Pt reports 0-3/10 LBP on VAS on average over the last couple weeks during rest and work-related activity, and feels 'much better' overall since I eval Objective Objective Notes AROM: LUMBAR SPINE FLX 0-64, EXT 0-31, LEFT SB 0-26, RIGHT SB 0-28 MMT: LEFT HIP FLX 4+/5, LEFT HIP ABD 4-4+/5, LEFT HIP ADD, EXT,KNEE EXT,FLX = ALL WFL TTP: LEFT LUMBAR PARA. 0-1/4, LEFT GLUT MM 0/4 Assessment Progress Assessment Progressing as Expected Assessment Notes improved TTP, AROM, and strength Patient goals met STG'S 05/04 LTG'S 07/07 Goals Not Met LTG'S 12/07 Plan Plan Pt to D/C w/continuation of HEP Frequency of Therapy na Duration of therapy na Time and Billing Re-Eval Time 12 Re-Eval Billing Units 1 PHYSICIAN CERTIFICATION: I certify the specified therapy services for Luiza Elizalde are required, authorized, and reviewed every 30 days.
== END 2024-09-27 23:59 | disposition home or self-care (01) ==
LOC: PT 11:00
PROVIDERS: Visit Provider Nurse Practitioner Family
DX: M54.50 Low back pain, unspecified (principal)
CPT/HCPCS: 97010; 97014; 97035; 97110; 97140; 97163; 97164; G0283

== ENCOUNTER 2024-11-06 10:34 | Emergency (ER) | payer BC, SELFPAY ==
[2024-11-06 10:52] VITALS: BP 126/69; PULSE 75; RESP 18; TEMP 36.9; O2SAT 98; BMI 29.2
[2024-11-06 10:55] LABS: UTC Strep Screen (Rapid) Negative (Negative)
--- NOTE | 2024-11-06 11:14 | EXP.UTC ---
Discharge Plan Disposition Patient Disposition: Home, Self-Care Condition: Good Prescriptions Prescriptions: New fluticasone propionate [Flonase Allergy Relief] 50 mcg/actuation spray,suspension 2 spray intranasal DAILY Qty: 16 0RF Rx Instructions: administer into each nostril daily amoxicillin 875 mg tablet 875 mg PO BID 10 Days Qty: 20 0RF No Action buspirone 10 mg tablet 10 mg PO BID Qty: 60 2RF desvenlafaxine succinate 50 mg tablet extended release 24 hr See Rx Instructions .ROUTE .COMPLEX Qty: 30 3RF Dose Instruction: TAKE ONE TABLET BY MOUTH EVERY DAY Rx Instructions: TAKE ONE TABLET BY MOUTH EVERY DAY dicyclomine 10 mg capsule 10 mg PO TID Qty: 90 3RF Referrals Follow up/Referrals: Negar Guy APRN [Primary Care Provider] - See instructions Activity Restrictions/Add. Instructions Additional Instructions/Restrictions: *Monitor Temp, Over the counter Motrin or Tylenol as directed/as needed Tylenol every 4 hours and Motrin every 6 hours (as long as your family doctor has told you that you can take it) for fever or pain. and straight to ER if unable to lower temp less than 101.0 after medication given *Warm salt water gargles may help to soothe the throat *Throat Lozenges? *Warm fluids like tea with honey may help to soothe the throat? *Sleep elevated *Humidifier/Vaporizer *Flonase 2 sprays in each nostril daily but be aware that it may take 2-3 days before you notice improvement Your throat swab was sent for culture. Those results are typically sent to your primary care. Be sure to follow up in 2-3 days with your family doctor/primary care physician if no improvement so they can review those result and treat if necessary. If you don?t have a primary care doctor, I recommend you get one but in the mean time, you will have to return to a walk in clinic Follow up IMMEDIATELY for new or worsening symptoms or no Noticeable improvement over the next 48-72 hours. 911 for difficulty breathing or swallowing Clinical Impressions Clinical Impression: Otitis media Instructions Patient Instructions: Middle Ear Infection, Sore Throat Print Language Print Language: Samoan Discharge ED Provider: Emilee Ivey [facility] [place] HPI General Stated complaint: sore throat, congestion, drainage Mode of Arrival: Ambulatory Source of Information: Patient Time Seen by Provider: 11/06/24 11:14 Description of Symptoms (Recalled from Triage Doc. by RN): SOR THROAT, CONGESTION, MUCUS HEENT Symptoms (Recalled from RN notes): Yes Resp Symptoms (Recalled from RN notes): Yes Skin Symptoms (Recalled from RN notes): No MS Symptoms (Recalled from RN notes): No Functional Status (Recalled from RN notes): WNL History of Present Illness Provider Complaint: Patient states that she has been having pain and pressure in her ears, sore throat, sinus congestion and mucous States today her voice is going in and out and her throat is hurting worse so she came in to get checked Related Data Previous Rx's ?Medication ?Instructions ?Recorded dicyclomine 10 mg capsule 10 mg PO TID #90 caps 07/25/24 buspirone 10 mg tablet 10 mg PO BID Anxiety #60 tabs 10/11/24 desvenlafaxine succinate 50 mg See Rx Instructions .Route 10/11/24 tablet,extended release 24 hr .COMPLEX #30 tabs amoxicillin 875 mg tablet 875 mg PO BID 10 days #20 tabs 11/06/24 fluticasone propionate 50 2 spray intranasal DAILY #16 grams 11/06/24 mcg/actuation nasal spray,suspension (Flonase Allergy Relief) Allergies Allergy/AdvReac Type Severity Reaction Status Date / Time No Known Allergies Allergy Verified 09/20/24 11:12 Worker's Comp Is this a Worker's Comp case?: No [facility] Disclaimer: The information contained in this section may have been updated after the patient was seen, as this information can be updated by other users. 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 occupational status: student Travel in the last 8 weeks: None household members: family housing: house caffeine: No ROS Obtained: Yes All systems reviewed & no additional complaints except as documented and Yes Systems reviewed as appropriate & no additional complaints except as documented Constitutional Constitutional: Reports system reviewed and no additional complaints, except as documented and Reports as per HPI ENT Ears, Nose, Mouth, and Throat: Reports system reviewed and no additional complaints, except as documented, Reports as per HPI, Reports otalgia, Reports nasal congestion, Reports nasal discharge and Reports sore throat Cardiovascular Cardiovascular: Reports system reviewed and no additional complaints, except as documented and Reports as per HPI Respiratory Respiratory: Reports system reviewed and no additional complaints, except as documented and Reports as per HPI Gastrointestinal Gastrointestingal: Reports system reviewed and no additional complaints, except as documented and as per HPI Physical Exam General General appearance: alert and in no apparent distress ENT ENT exam: Present mucous membranes moist Expanded ENT Exam TM/Canal exam: Right TM: erythema and bulging Throat exam: Present tonsillar erythema; Absent tonsillomegaly or tonsillar exudate Respiratory Respiratory exam: Present normal lung sounds bilaterally; Absent respiratory distress or wheezes Cardiovascular Cardiovascular exam: Present regular rate, normal rhythm and normal heart sounds Abdominal Exam Abdominal exam: Present soft and normal bowel sounds; Absent distention or tenderness Neurological Exam Neurological exam: Present alert, oriented X3 and normal gait Medical Decision Making Medical Records Screening: Per USPSTF and CDC recommendations, given the prevalence of disease in our region, it is our hospital?s policy to screen for HIV and viral Hepatitis for all patients aged 18 and over and those with ongoing risk factors. Tristan Inquiry Pt receiving controlled substance: No Tristan was queried for this patient: No Vital Signs: 11/06/24 10:52 Temperature 98.4 F Temperature Source Oral Pulse Rate [Left Radial] 75 Respiratory Rate 18 Blood Pressure [Left Arm] 126/69 Blood Pressure Mean [Left Arm] 88 02 Sat by Pulse Oximetry 98 Lab Data Lab results reviewed: Yes I reviewed the patient's lab results. Lab Results 11/06/24 10:46: Strep Scn Rapid Clinic Negative Orders (Tests/Meds): ORDERS Category Date Time Status Strep Screen Confirmation Stat Micro 11/06/24 10:46 Received
[2024-11-06 11:30] VITALS: BP 126/69; PULSE 75; RESP 18; TEMP 36.9
== END 2024-11-06 11:30 | disposition home or self-care (01) ==
PROVIDERS: Emergency Provider Nurse Practitioner; PCP Nurse Practitioner Family
DX: H66.90 Otitis media, unspecified, unspecified ear (principal); H92.09 Otalgia, unspecified ear; R09.81 Nasal congestion; R07.0 Pain in throat
CPT/HCPCS: 87880; 99212; G0381

== ENCOUNTER 2025-07-23 14:45 | Outpatient (CLI) | payer SELFPAY ==
[2025-07-23 15:05] LABS: COC Drug Screen Collection Only
== END 2025-07-23 23:59 | disposition home or self-care (01) ==
LOC: LAB 14:46
DX: R69 Illness, unspecified (principal)